=== PATIENT | female | born 1965 | race Caucasian/White ===

== ENCOUNTER 2023-09-02 10:42 | Emergency (ER) | payer SELFPAY ==
[2023-09-02 11:29] VITALS: BP 139/80; PULSE 85; RESP 16; TEMP 98.8; BMI 18.4
[2023-09-02] MEDS ORDERED: KETOROLAC TROMETHAMINE 60 MG/2 ML VIAL ONE (12:19)
[2023-09-02] MEDS ORDERED: LIDOCAINE 5% TOPICAL PATCH ONE (12:20)
[2023-09-02] MEDS: KETOROLAC TROMETHAMINE 60 MG/2 ML VIAL IM ONE (12:25)
[2023-09-02] MEDS: LIDOCAINE 5% TOPICAL PATCH TP ONE (12:25)
[2023-09-02] MEDS ORDERED: LIDOCAINE PATCH REMOVAL MC SCH (22:00)
== END 2023-09-02 12:35 | disposition home or self-care (01) ==
LOC: FER 10:42
PROC: 3E0233Z Introduction of Anti-inflammatory into Muscle, Percutaneous Approach (ICD-10-PCS; principal; 2023-09-02)
DX: M79.18 Myalgia, other site (principal); M54.32 Sciatica, left side
CPT/HCPCS: 99284-25